=== PATIENT | female | born 1955 | race Two or more races ===

== ENCOUNTER 2021-12-12 09:45 | Inpatient (IN) | payer OTHER ==
[~2021-12-12] VITALS: Ht 165.1 cm; Wt 82.6 kg
[2021-12-13] MEDS ORDERED: SYNTHROID75 MCG PO (08:14)
[2021-12-13] MEDS ORDERED: COZAAR100 MG PO (08:14)
[2021-12-13] MEDS ORDERED: HYDROCHLOROTH12.5 MG PO (08:15)
[2021-12-13] MEDS ORDERED: SIMVASTATIN10 MG PO (08:15)
[2021-12-13] MEDS ORDERED: TOPROL XL25 M1 PO (08:15)
[2021-12-13] MEDS ORDERED: TRANXENE T-TAB7.5 MG PO (08:15)
[2021-12-14] MEDS ORDERED: LOPRESSOR25 MG (08:14)
== END 2021-12-16 09:50 | disposition home or self-care (01) | DRG 735 ==
LOC: OB/GYN 12-14 05:25 → O/R 12-14 05:25 → SURH 12-14 07:00 → OB/GYN 12-14 11:49
PROVIDERS: ADMIT Specialist; ATTEND Specialist
PROC: 07TC4ZZ Resection of Pelvis Lymphatic, Percutaneous Endoscopic Approach (ICD-10-PCS; 2021-12-14)
PROC: 0UT9FZZ Resection of Uterus, Via Natural or Artificial Opening With Percutaneous Endoscopic Assistance (ICD-10-PCS; 2021-12-14)
PROC: 0UT7FZZ Resection of Bilateral Fallopian Tubes, Via Natural or Artificial Opening With Percutaneous Endoscopic Assistance (ICD-10-PCS; 2021-12-14)
PROC: 0UT2FZZ Resection of Bilateral Ovaries, Via Natural or Artificial Opening With Percutaneous Endoscopic Assistance (ICD-10-PCS; 2021-12-14)
PROC: 3E1M48Z Irrigation of Peritoneal Cavity using Irrigating Substance, Percutaneous Endoscopic Approach (ICD-10-PCS; 2021-12-14)
PROC: 07TD4ZZ Resection of Aortic Lymphatic, Percutaneous Endoscopic Approach (ICD-10-PCS; principal; 2021-12-14 07:00)
DX: C54.1 Malignant neoplasm of endometrium (principal); D27.1 Benign neoplasm of left ovary; D25.2 Subserosal leiomyoma of uterus; Z20.822 Contact with and (suspected) exposure to COVID-19